=== PATIENT | male | born 1950 | race Caucasian/White ===

== ENCOUNTER 2016-09-13 13:28 | Inpatient (IN) ==
[2016-09-13] MEDS ORDERED: Nitroglycerin 0.4 MG TAB.SUBL SL PRN (13:49)
--- NOTE | 2016-09-13 13:49 | Emergency Department Note ---
Disposition Clinical Impression: Chest pain Qualifiers: Chest pain type: unspecified Qualified Code(s): R07.9 - Chest pain, unspecified Disposition: Admitted As Inpatient Condition: Good [facility]Primary Care Provider[facility] - Forms: ED Satisfaction Letter General Adult HPI - General Chief complaint: ED Chest Pain Stated complaint: Chest Pain Time Seen by Provider: 09/13/16 13:31 Source: patient Mode of arrival: ambulatory Limitations: no limitations Nursing Notes Reviewed: Yes Vital Signs Reviewed: Yes - History of Present Illness HPI Narrative: Patient transferred from the [facility] for right-sided chest pain and cardiac evaluation. Patient's symptoms are right-sided in nature and described as a heaviness that radiates to his shoulder. Patient states that it has been constant in nature. Patient is not able to attribute any alleviating or exacerbating factors. Patient was seen by his international student advisor today as an outpatient visit and transfer to the emergency department for further evaluation. Initial workup there had a negative chest x-ray and troponin with results of complete blood work dictated below. Patient's past medical history includes COPD. Degenerative disc disease. Sciatica. CHF. Alcohol abuse. Atrial fibrillation. Medications include atorvastatin, budesonide, carvedilol, cyclobenzaprine, digoxin, diltiazem, furosemide, albuterol, tiotropium. [facility] lab results and imaging: Line chest x-ray findings with no acute cardiopulmonary disease on portable chest x-ray. Troponin 0.00 WBC 11.7. Hemoglobin 16.6. Platelets 286. There is no left shift. Sodium 143, potassium 3.4, chloride 104, CO2 28, glucose 95, WN 11, creatinine 1.11, AST 28 , ALC 48, T bili 0.8, mag 2.2, BNP 519. ABG with pH of 7.43. PCO2 33.7. PO2 70. CO2 23. CN III 22.2% to 94. Lactate 0.8. Pain Scale: 0 - Related Data Allergies Allergy/AdvReac Type Severity Reaction Status Date / Time No Known Allergies Allergy Verified 09/13/16 13:29 All systems ED: reviewed and negative except as stated. Constitutional: Denies: fever, chills Eyes: Denies: eye pain Cardiovascular: Reports: chest pain, palpitations, dyspnea on exertion Respiratory: Reports: dyspnea. Denies: cough Gastrointestinal: Denies: abdominal pain, nausea Genitourinary: Denies: urgency, dysuria Musculoskeletal: Denies: back pain, neck pain Integumentary: Denies: rash Neurological: Denies: headache, weakness Psychiatric: Denies: anxiety, depression Past Medical History - Past Medical History Medical history: Reports: atrial fibrillation, CHF, COPD, hyperlipidemia Psychiatric history: Reports: no psych history - Social History Smoking Status: Former smoker Smokeless Tobacco Status: No Alcohol use: Reports: none Drug use: Reports: marijuana Physical Exam - General General appearance: alert, in no apparent distress - Head Head exam: atraumatic, normocephalic - Eye Eye exam: Present: normal appearance, PERRL - ENT ENT exam: normal exam, normal oropharynx - Neck Neck exam: Present: normal inspection - Chest Chest inspection: Present: normal inspection, symmetric chest wall rise, tenderness (Anterior chest wall) - Respiratory Respiratory exam: Present: other (Decreased breath sounds diffusely). Absent: respiratory distress - Cardiovascular Cardiovascular exam: Present: regular rate, irregular rhythm, normal heart sounds - Abdominal Exam Abdominal exam: Present: soft, Non-Tender - Extremities Exam Extremities exam: Present: normal inspection. Absent: tenderness - Neurological Exam Neurological exam: Present: alert, oriented X3. Absent: motor sensory deficit - Psychiatric Psychiatric exam: Present: normal affect, normal mood - Skin Skin exam: Present: warm, dry, intact Course Course Narrative: After evaluation of previous blood work repeated troponin, digoxin level, d- dimer and TSH will be ordered. Patient will be reevaluated and likely admitted for further workup. Patient has not had a previous cardiac workup. Patient states that he went into A. fib in 2009 but has not been on any anticoagulation since then. Patient follows at the [facility]. - Consultations Consultation #1: Discussed with Dr. Gaines. Patient accepted for admission by the hospitalist service Vital Signs Temperature 97.6 F 09/13/16 13:32 Pulse Rate 78 09/13/16 13:32 Respiratory Rate 20 09/13/16 13:32 Blood Pressure 136/87 09/13/16 13:32 O2 Sat by Pulse Oximetry 97 09/13/16 13:32 Temperature 97.6 F 09/13/16 13:32 Pulse Rate 71 09/13/16 14:52 Respiratory Rate 20 09/13/16 14:52 Blood Pressure 118/67 09/13/16 14:52 O2 Sat by Pulse Oximetry 97 09/13/16 14:52 Oxygen Delivery Oxygen Delivery Room Air Medical Decision Making - Medical Records Medical records reviewed: Yes I reviewed the patient's medical records. - Lab Data Lab results reviewed: Yes I reviewed the patient's lab results. Lab Results 09/13/16 09/13/16 09/13/16 Range/Units 14:08 14:08 14:08 D-Dimer 493 (0-500) ng/mLFEU Troponin I 0.00 (0-0.03) ng/mL TSH 3.007 (0.350-4.840) mcIU/mL Digoxin 0.8 (0.8-2.0) ng/mL - Radiology Data Radiology results reviewed: Yes I reviewed the patient's radiology results. - EKG Data EKG #1 EKG attestation: Yes I reviewed and interpreted this EKG. EKG results narrative: EKG shows atrial fibrillation. Ventricular rate of [address] elevation or depression. No specific T-wave changes. No previous EKG for comparison. Attestation Statement - Attestation Attestation: Patient was seen with resident physician. I reviewed the history, physical, assessment and plan, and agree with the findings. I also personally evaluated this patient and had [id number] time with this patient. 66-year-old male presents to the emergency department for rule out OK per [facility]. Patient was seen by international student advisor earlier today was complaining of some right-sided chest pressure that radiates to his right arm. Patient was sent then to the ER at the [facility]. Initial troponin x-ray did not reveal any acute abnormalities but he was sent here for hospitalization and rule out. Patient states that his pain is currently a 1 out of 10 he denies other symptoms at this time. On examination vital signs are stable. ENT is unremarkable. Heart and lungs are both normal. Abdomen is soft and nontender. Extremities are unremarkable. Neurologically the patient's intact. We will do another set of troponin will also check a d-dimer. Once done will admit patient to the hospital for rule out. I agree with the resident physician assessment and plan.
[2016-09-13 14:52] LABS: Digoxin 0.8 ng/mL (0.8-2.0)
[2016-09-13 14:53] LABS: Thyroid Stimulating Hormone 3.007 mcIU/mL (0.350-4.840)
[2016-09-13] MEDS ORDERED: Naloxone 0.4 MG/ML INJ IVP PRN (16:23)
[2016-09-13] MEDS ORDERED: *HR* Morphine 2 MG/ML SYRINGE IVP PRN (16:23)
[2016-09-13] MEDS ORDERED: Acetaminophen 325 MG TABLET PO PRN (16:23)
[2016-09-13] MEDS ORDERED: *HR* HYDROcodone/Acet 5/325 mg TABLET PO PRN (16:23)
[2016-09-13] MEDS ORDERED: Ondansetron 4 MG/2 ML VIAL IVP PRN (16:23)
[2016-09-13] MEDS ORDERED: Levalbuterol 1 PUFF INHALER IH PRN (16:27)
--- NOTE | 2016-09-13 16:29 | Internal Med History&Physical ---
Date of Encounter: 09/13/16 Time of Encounter: 16:29 Assessment and Plan (1) Chest pain Current visit: Yes Status: Acute Unstable angina Typical chest pain with no EKG changes or troponin elevation in a patient with multiple risk factors Continue home ASA, Lipitor, BB, Add low dose lisinopril Nitro Prn, morphine prn severe pain Supplemental O2 prn Cycle trops Obtain ECHO Cardiology eval Qualifiers: Chest pain type: unspecified Qualified Code(s): R07.9 - Chest pain, unspecified (2) Atrial fibrillation Current visit: Yes Status: Chronic HR controlled Continue home meds Qualifiers: Atrial fibrillation type: chronic Qualified Code(s): I48.2 - Chronic atrial fibrillation (3) Hypertension Current visit: Yes Status: Chronic Controlled, continue home meds Qualifiers: Hypertension type: essential hypertension Qualified Code(s): I10 - Essential (primary) hypertension (4) COPD (chronic obstructive pulmonary disease) Current visit: Yes Status: Chronic No evidence of exacerbation Continue advair, spiriva ALB prn wheezing Qualifiers: COPD type: unspecified COPD Qualified Code(s): J44.9 - Chronic obstructive pulmonary disease, unspecified (5) Hypokalemia Current visit: Yes Status: Acute Mild, replaced, repeat Chem a.m (6) CHF (congestive heart failure) Current visit: Yes Status: Chronic Chronic Type of CHF unknaonw, no records here Patient on BB, Lasix at home Continue same Add ACEI Clinically euvolemic BNP WNL Qualifiers: Congestive heart failure type: unspecified congestive heart failure type Congestive heart failure chronicity: chronic Qualified Code(s): I50.9 - Heart failure, unspecified Internal Medicine - H&P: HPI Chief complaint: chest pain Admitted From: Home Plans for Post Hospital Care: Home History of present illness: 66 M with PMH of COPD, Afib, CHF. Patients chest pain is atypical, right sided, not related to exertion or rest, and non-radiating. He had presented to his Pulmonologists office and he was referred to the ER at the [facility] due to complains of chest pain that has been going on for the past 3-4 days. Patient describes the chest pain as a feeling of being held down by someone heavier, substernal in location and has no known variability with exertion or rest. However, he reports he has been having worsening dyspnea on exertion, he reports being short of breath even with combing his hair. He denies orthopnea or PND, he denies leg swelling. Pain is intermiitent with each episode lasting about 3 minutes, pain is non-radiating. He denies dizziness or nausea or vomiting or diaphoresis during these episodes of chest pain. He used to be a smoker, currently smoked THC occasionally, denies illicit drug use. Patient reports similar symptoms 6 years ago for which he got a cath done which was said to be normal At time of review, he denies any active chest pain [facility]: Troponin 0.00, WBC 11.7. Hemoglobin 16.6. Platelets 286. There is no left shift. Sodium 143, potassium 3.4, chloride 104, CO2 28, glucose 95, WN 11, creatinine 1.11, AST 28, ALC 48, T bili 0.8, mag 2.2, BNP 519. ABG with pH of 7.43. PCO2 33.7. PO2 70. CO2 23. CN III 22.2% to 94. Lactate 0.8. CXR unremarkable EKG with Afib, moderate LAD. Repeat troponin here negative, Digoxin level is 0.8, Mag WNL. TSH WNL. Patient will be admitted for unstable angina, we will cycle troponin and obtain ECHO. However, patient with baseline EKG abnormality, Afib on digoxin and BB, will consult cardiology for eval and or LHC as interpretability of stress test will be limited. Plan of care discussed, verbalized understanding. Will replace potassium, mag is 2.2 Past Med Surg Social Fam HX - Past Medical History Medical history: atrial fibrillation, CHF, COPD, hyperlipidemia Psychiatric history: no psych history - Social History Smoking Status: Former smoker Smokeless Tobacco Status: No Alcohol use: none Drug use: marijuana - Family History Mother Living Status: Hx Family Cancer: Yes (Brain) Father Living Status: Hx Family Cancer: Yes (Lung) Internal Medicine - H&P: Meds Aspirin Enteric Coated [Aspirin EC] 81 mg PO DAILY 09/13/16 [History] Atorvastatin [Lipitor] 40 mg PO HS 09/13/16 [History] Budesonide/Formoterol 160/4.5 [Symbicort 160/4.5] 1 puff IH BIDR 09/13/16 [ History] Carvedilol 3.125 mg PO BID 09/13/16 [History] Cyclobenzaprine HCl 5 mg PO BID 09/13/16 [History] Digoxin [Lanoxin] 0.25 mg PO DAILY 09/13/16 [History] Diltiazem HCl [Diltiazem 24Hr Cd] 120 mg PO DAILY 09/13/16 [History] Furosemide [Lasix] 20 mg PO DAILY 09/13/16 [History] Levalbuterol [Xopenex INH] 2 puff IH Q6H PRN 09/13/16 [History] Tiotropium [Spiriva] 36 mcg IH DAILY 09/13/16 [History] Allergies No Known Allergies Allergy (Verified 09/13/16 13:29) All Systems PM: A 10-system review of systems was performed and is negative for pertinent findings except as documented above in the HPI. - Constitutional Constitutional: as per HPI - EENT Eyes: as per HPI Ears: as per HPI Nose, mouth and throat: as per HPI - Cardiovascular Cardiovascular ROS IM: as per HPI - Respiratory Respiratory: as per HPI - Gastrointestinal Gastrointestinal: as per HPI - Musculoskeletal Musculoskeletal ROS IM: as per HPI - Integumentary Integumentary IM: as per HPI - Neurological Neurological ROS: as per HPI - Hematologic/Lymphatic Hematologic/Lymphatic: as per HPI - Constitutional Vitals: Temp Pulse Resp BP Pulse Ox 97.6 F 67 16 115/69 96 09/13/16 16:15 09/13/16 16:15 09/13/16 16:15 09/13/16 16:15 09/13/16 16:15 General appearance: Present: A&O X 3, pleasant, no acute distress - Head Head exam: Present: atraumatic, normocephalic - Eye Eye exam: Present: PERRL, conjuntiva pink, sclera anicteric Pupils: Present: PERRL - Neck Neck exam general surgery: Present: supple, trachea midline. Absent: lymphadenopathy - Respiratory Respiratory exam: Present: CTAB. Absent: accessory muscle use, rales, rhonchi, wheezes - Cardiovascular Cardiovascular exam: Present: RRR, +S1, +S2. Absent: diastolic murmur, gallop, rubs, systolic murmur - GI/Abdominal GI/Abdominal exam: Present: normal bowel sounds, soft, no peritoneal signs. Absent: distended, tenderness - Extremities Exam Extremities exam: Present: warm, radial pulses palpable and symetrical. Absent : calf tenderness, cyanotic, pedal edema - Neurological Exam Neurological exam: Present: alert, CN II-XII intact, oriented X3, no focal deficits. Absent: pronater drift, facial droop, speech deficit - Skin Skin exam: Present: dry, intact
[2016-09-13] MEDS: Budesonide/Formoterol 160/4.5 MDI IH SCH (21:36)
[2016-09-14 04:41] LABS: Basophils # 0.1 K/mcL (0.0-0.2); Basophils % 0.7 %; Eosinophils # 0.2 K/mcL (0.0-0.6); Hematocrit 47.8 % (37.5-50.1); Hemoglobin 16.8 g/dL (12.9-16.9); Immature Granulocytes % 0.4 % (0-4); Lymphocytes # 2.8 K/mcL (0.6-4.6); Lymphocytes % 24.2 %; Mean Corpuscular HGB Conc 35.1 g/dL (31.6-35.5); Mean Corpuscular Volume 93.9 fL (83.0-100.0); Mean Platelet Volume 10.5 fL (9.4-12.4); Monocytes # 1.1 K/mcL (0.0-1.3); Monocytes % 9.4 %; Neutrophils # 7.2 K/mcL (1.6-8.9); Platelet Count 281 K/mcL (140-400); Red Blood Count 5.09 M/mcL (4.19-5.50); Red Cell Distribution Width 12.4 % (11.5-14.5); Segmented Neutrophils % 63.3 %
[2016-09-14 05:00] LABS: BUN/Creatinine Ratio 18 (6-26); Blood Urea Nitrogen 17 mg/dL (8-26); Calcium 9.8 mg/dL (8.6-10.8); Carbon Dioxide 22 mEq/L (19-29); Chloride 108 mEq/L (98-109); Glucose 98 mg/dL (70-99); Osmolality,Calculated 292 (280-300); Potassium 4.3 mEq/L (3.5-4.5); Sodium 140 mEq/L (136-145); eGFR For African Americans > 60 (> 60); eGFR For Non-African Americans > 60 (> 60)
[2016-09-14] MEDS ORDERED: *HR* Enoxaparin 30 MG/0.3 ML SYRINGE SQ SCH (06:00)
[2016-09-14] MEDS ORDERED: Furosemide 20 MG TABLET PO SCH (09:00)
[2016-09-14] MEDS ORDERED: Diltiazem CD (24hr) 120 MG CAPSULE PO SCH (09:00)
[2016-09-14] MEDS ORDERED: Tiotropium 18 MCG inhalation IH SCH (09:00)
[2016-09-14] MEDS ORDERED: Aspirin Enteric Coated 81 MG Tablet PO SCH (09:00)
[2016-09-14] MEDS ORDERED: *HR* Digoxin 0.25 MG TABLET PO SCH (09:00)
[2016-09-14] MEDS ORDERED: Regadenoson 0.4 MG/5 ML SYRINGE IVP ONE (10:45)
--- NOTE | 2016-09-14 11:47 | Cardiology Consult Note ---
Date of Encounter: 09/14/16 Time of Encounter: 11:39 Assessment and Plan (1) Chest pain Current Visit: Yes Status: Acute Typical chest pain symptoms. Troponin negative. EKG with no ST changes. May be secondary to atrial fibrillation. Multiple risk factors including previous tobacco use, hypertension, and hyperlipidemia. Stress test recommended for further ischemic evaluation.. Patient agrees. Qualifiers: Chest pain type: unspecified Qualified Code(s): R07.9 - Chest pain, unspecified (2) Atrial fibrillation Current Visit: Yes Status: Chronic Telemetry shows avg HR 89 bpm. HR 80-100 this morning after receiving medications late morning. Will continue to monitor and increase medications if needed. CHADS VASc=2 for HTN and CHF. Anticoagulation with coumadin or NOAC discussed. I discussed indications, use, and adverse effects. He is agreeable to anticoagulation. Start xarelto if echocardogram shows no significant mitral stenosis. Qualifiers: Atrial fibrillation type: chronic Qualified Code(s): I48.2 - Chronic atrial fibrillation (3) CHF (congestive heart failure) Current Visit: Yes Status: Chronic H/o CHF treated in 2009 when he was diagnosed with afib. No recurrent events. [place] records list him as systolic and diastolic CHF. Currently euvolemic. Check TTE. Qualifiers: Congestive heart failure type: unspecified congestive heart failure type Congestive heart failure chronicity: chronic Qualified Code(s): I50.9 - Heart failure, unspecified Discussion w patient/family: The assessment and plan as outlined above was discussed with the patient and/or family members who expressed understanding and agreement. All questions were answered. Thank you for involving us in the care of your patient. Please call with any questions. History of Present Illness Consult date: 09/14/16 Requesting physician: Ty Gaines Consult reason: Chest pain Chief complaint: Chest pain History of present illness: Mr. Aguirre is a 66 year old male with a history of atrial fibrillation, hypertension, previous tobacco use, and CHF who presented from the [facility] with chest pain. He c/o a mid-sternal non-radiating chest pressure over the last three days. The pain increases with activity and improved with rest. He states his "heart was acting up" while he was being evaluated at the [facility] emergency department. Initial EKG showed atrial fibrillation. HR 96bpm. No acute ST changes. Telemetry review shows avg HR 89 bpm. He appears to have rate controlled afib since admission. He is currently pain free. Denies h/o CAD. Reports diagnosis of afib in 2009. He underwent LHC at that time that was okay per patient. Past Med Surg Social Fam HX - Past Medical History Attestation: Yes The following information was validated with the patient. Medical history: atrial fibrillation, CHF, COPD, hyperlipidemia Psychiatric history: no psych history - Social History Smoking Status: Former smoker Smokeless Tobacco Status: No Alcohol use: none Drug use: marijuana - Family History Mother Living Status: Hx Family Cancer: Yes (Brain) Father Living Status: Hx Family Cancer: Yes (Lung) Medications and Allergies Aspirin Enteric Coated [Aspirin EC] 81 mg PO DAILY 09/13/16 [History] Atorvastatin [Lipitor] 40 mg PO HS 09/13/16 [History] Budesonide/Formoterol 160/4.5 [Symbicort 160/4.5] 1 puff IH BIDR 09/13/16 [ History] Carvedilol 3.125 mg PO BID 09/13/16 [History] Cyclobenzaprine HCl 5 mg PO BID 09/13/16 [History] Digoxin [Lanoxin] 0.25 mg PO DAILY 09/13/16 [History] Diltiazem HCl [Diltiazem 24Hr Cd] 120 mg PO DAILY 09/13/16 [History] Furosemide [Lasix] 20 mg PO DAILY 09/13/16 [History] Levalbuterol [Xopenex INH] 2 puff IH Q6H PRN 09/13/16 [History] Tiotropium [Spiriva] 36 mcg IH DAILY 09/13/16 [History] Allergies No Known Allergies Allergy (Verified 09/13/16 13:29) All Systems Review: A 10-system review of systems was performed and is negative for pertinent findings except as documented above in the HPI. Physical Examination Vital Signs, Last 4 Hours Temp Pulse Resp BP Pulse Ox 09/14/16 11:18 97.7 F 100 16 119/76 95 09/14/16 08:46 96 General: Conversant, No Apparent Distress HEENT: Atraumatic, Normocephaly, Mucus Membranes Moist Neck: No JVD, Normal carotid pulses Cardiac: Other (irregularly irregular. ) Lungs: Normal Breath Sounds, No Wheeze, Rales, Rhonchi Neuro: Alert and responsive, No focal deficits noted Abdomen: Soft, Non-Tender Skin: No rashes noted on visualized skin Musculoskeletal: No Chest Wall Tenderness Extremities: No Clubbing, No Cyanosis, No Edema, Normal Pulses Results 09/14/16 03:10 09/14/16 03:10 Lab Results 09/13/16 09/14/16 09/14/16 19:54 03:10 03:10 WBC 11.4 H Hgb 16.8 Hct 47.8 Plt Count 281 Sodium 140 Potassium 4.3 Chloride 108 Carbon Dioxide 22 BUN 17 Creatinine 0.94 Glucose 98 Calcium 9.8 Magnesium Troponin I 0.00 09/14/16 03:10 WBC Hgb Hct Plt Count Sodium Potassium Chloride Carbon Dioxide BUN Creatinine Glucose Calcium Magnesium 1.9 Troponin I - Imaging and Cardiology Stress Test: pending Echo: pending - EKG Interpretation EKG results cardiology: personally reviewed Consult Discharge Plan - Plan [facility]errals: [facility] [Primary Care Provider] -
--- NOTE | 2016-09-14 11:48 | ECHO - Doppler Report ---
Echocardiogram Name: Willam Aguirre Date of Study: 09/14/2016 Date: 1950 Ht: 68.0 in Medical Record#: [id number] Age: 66 Wt: 153.0 lb Gender: Male BSA: 1.82 Order #: [id number] Location: [facility] Room #: 3B Reading Physician: Kevin Ding DO, [facility] [place] Clinical Leader: aMrko Schultz RN Ordering Physician: Ty Gaines MD Primary Physician: [facility] Indications: Chest pain Impressions: LVEF 55-60%. Normal LV chamber size and function. Mild concentric left ventricular hypertrophy. Atypical septal motion consistent with bundle branch block. Indeterminate diastolic function. Normal right ventricular structure and function. Moderately dilated left atrium. Mild tricuspid regurgitation. No pulmonary hypertension. Left Ventricular Wall Motion: Rest Echo Findings All wall segments showed normal motion. Findings: Study Quality * Technically adequate exam. ECG Findings * Atrial fibrillation with a bundle branch block. Left Ventricle * LVEF 55-60%. * Normal LV chamber size and function. * Mild concentric left ventricular hypertrophy. * Atypical septal motion consistent with bundle branch block. * Indeterminate diastolic function. Right Ventricle * Normal right ventricular structure and function. Left Atrium * Moderately dilated left atrium. Right Atrium * Mildly dilated right atrium. Interatrial Septum * No evidence of PFO by color Doppler. Aortic Valve * Trileaflet aortic valve with normal function. * No aortic regurgitation. * No aortic stenosis. Mitral Valve * Normal mitral valve structure and function. * No mitral stenosis. * Trace mitral regurgitation. Tricuspid Valve * Normal tricuspid valve structure. * Mild tricuspid regurgitation. * No pulmonary hypertension. Pulmonic Valve * Normal pulmonic valve structure and function. * No pulmonic regurgitation. Aorta * Normally sized aortic root. Pericardium * The pericardium appears normal. IVC * Normal IVC dimensions and inspiratory collapse. Pulmonary Artery * Normal visualized portions of the main pulmonary artery. History Hypertension Hypercholesteremia Years 40 Packs 2 Congestive Heart Failure Measurements: BP: 126/ 86 2D Normal Values RVIDd: 2.50 cm <2.7 cm IVSd: 1.20 cm 0.6 - 1.0 cm LVIDd: 4.10 cm 3.7 - 5.6 cm LVPWd: 1.20 cm 0.6 - 1.1 cm LVIDs: 2.50 cm 1.5 - 3.6 cm LA: 3.40 cm 2.0 - 4.0cm %FS: 39.00 cm >25 % LVOT Diam: 2.00 cm LA volume: 87 Mitral Valve Peak E:.67 m/sec Peak A:.51 m/sec E/A Ratio:1.3 Peak E' Lat Anjel:11.3 cm/s Peak E' Med Anjel:8.97 cm/s E/E' Lat Ratio:5.9 E/E' Med Ratio:7.5 Tricuspid Valve TV Regurg Peak Grad: 23.00mmHg TV Regurg Peak Anjel: 2.40m/sec Updated by Kevin Ding DO, FACTre, FALGUNI, SONYA on 09/14/2016 11:44:12 AM electronically signed on 09/14/2016 11:44:48 AM with status of Final [employer] [place]: 1=Normal, 2=Hypokinesis, 3=Akinesis, 4=Dyskinesis, 5=Aneurysmal, 6=Hyperkinetic, X=Not Visualized (Blank)=Missing
[2016-09-14] MEDS: Budesonide/Formoterol 160/4.5 MDI IH SCH (12:00)
--- NOTE | 2016-09-14 14:05 | Nuclear Medicine Stress Report ---
Regadenoson Nuclear Stress Name: Willam Aguirre Date of Study: 09/14/2016 Date: 1950 Ht: 68.0 in Medical Record#: [id number] Age: 66 Wt: 157.0 lb Gender: Male Order #: [id number] [facility] Room: [facility] Supervising Provider: Jolie Licona CNP Reading Physician: Kevin Ding DO, FACC, FASSC Ordering Physician: Madonna Moreira MD Primary Care Physician: [facility] Stress Technologist: Fabienne Johnson CYTOLOGY LABORATORY MANAGER, CCT On Air Host: Junior Chirstine Indications: Chest Pain Impression: Pharmacologic stress ECG is non diagnostic for ischemia due to baseline non-specific ST and T changes. Gated EF > 70%. Perfusion imaging was negative for ischemia or infarct. History: Hypertension Hypercholesteremia Stress Test Summary: Stress Test Type: Pharmacologic Regadenoson 0.4mg/5ml given IV Baseline Information: Initial Heart Rate: 105 Blood Pressure: 112/64 Stress Information: Test Terminated Due to (primary): As per protocol Maximum Blood Pressure: 98/70 Maximum Heart Rate: 119 Percent Maximum Heart Rate Achieved: 76 Double Product: [id number] METS Reached: 1 Symptoms: No chest symptoms Nuclear Summary: SPECT myocardial perfusion imaging using Tc99m Sestamibi given intravenously was performed at rest and following cardiac stress testing. The resting images were obtained following initial dose of 10.1 mCi. Following stress an additional dose of 35.3 mCi was given at peak exercise or 30 seconds post regadenoson infusion. Medication Given: Time Medication Dose Units Route Findings: Stress Note * Atrial fibrillation with nonpsecific ST-T changes throughout the study. * Pharmacologic stress ECG is non diagnostic for ischemia due to baseline non-specific ST and T changes. * Patient had no chest pain during stress. Hemodynamic responses * Normal hemodynamic responses to pharmacologic stress. Study Quality * Study quality is average. Gated EF > 70% * Gated EF > 70%. Left Ventricle * The left ventricle is not dilated. * LVEDV = 59 mL. NORMALS * Normal wall motion. * Normal segmental perfusion in stress. Inferior Perfusion Rest * The inferoseptal segments show a mild reduction in perfusion, which improved with stress imaging. This is consistent with artifact. TID * No evidence of transient ischemic dilatation. TID ratio * TID ratio = 0.97. Lung Uptake * There is no evidence of increase lung uptake. Updated by Kevin Ding DO, MARIN, FALGUNI, SONYA on 09/14/2016 1:58:33 PM electronically signed on 09/14/2016 1:59:28 PM with status of Final
[2016-09-14 15:37] VITALS: BP 109/79
[2016-09-14] MEDS ORDERED: *HR* Rivaroxaban 10 MG TABLET PO SCH (17:00)
--- NOTE | 2016-09-14 17:12 | Discharge Summary ---
Date of Encounter: 09/14/16 Time of Encounter: 17:09 - Discharge Diagnosis (1) Chest pain Priority: Primary Status: Acute Qualifiers: Chest pain type: unspecified Qualified Code(s): R07.9 - Chest pain, unspecified (2) Atrial fibrillation Priority: Secondary Status: Chronic Qualifiers: Atrial fibrillation type: chronic Qualified Code(s): I48.2 - Chronic atrial fibrillation (3) Hypertension Priority: Secondary Status: Chronic Qualifiers: Hypertension type: essential hypertension Qualified Code(s): I10 - Essential (primary) hypertension (4) COPD (chronic obstructive pulmonary disease) Priority: Secondary Status: Chronic Qualifiers: COPD type: unspecified COPD Qualified Code(s): J44.9 - Chronic obstructive pulmonary disease, unspecified - Discharge Medications Prescriptions: Carvedilol [Coreg] 6.25 mg PO BID #60 tablet Rivaroxaban [Xarelto] 20 mg PO DAILY #30 tablet Home Medications: Aspirin Enteric Coated [Aspirin EC] 81 mg PO DAILY 09/13/16 [History] Atorvastatin [Lipitor] 40 mg PO HS 09/13/16 [History] Budesonide/Formoterol 160/4.5 [Symbicort 160/4.5] 1 puff IH BIDR 09/13/16 [ History] Cyclobenzaprine HCl 5 mg PO BID 09/13/16 [History] Digoxin [Lanoxin] 0.25 mg PO DAILY 09/13/16 [History] Diltiazem HCl [Diltiazem 24Hr Cd] 120 mg PO DAILY 09/13/16 [History] Furosemide [Lasix] 20 mg PO DAILY 09/13/16 [History] Levalbuterol [Xopenex INH] 2 puff IH Q6H PRN 09/13/16 [History] Tiotropium [Spiriva] 36 mcg IH DAILY 09/13/16 [History] Carvedilol [Coreg] 6.25 mg PO BID #60 tablet 09/14/16 [Rx] Rivaroxaban [Xarelto] 20 mg PO DAILY #30 tablet 09/14/16 [Rx] Allergies/Adverse Reactions: Allergies No Known Allergies Allergy (Verified 09/13/16 13:29) Procedures/tests Complete & Pending: Procedures Performed prior 72 hours Category Date Time Status NM daniella perf SPECT multi [NM] Routine Exams 09/14/16 09:27 Taken EV echocardiogram Routine Y 09/14/16 16:26 Completed SP pharm nuclear stress Routine Y 09/14/16 10:30 Completed Date of admission: 09/13/16 16:23 Primary care physician: PCP [place] Consults: 09/13/16 17:17 Consult to Cardiology [CONS] Routine Comment: Consulting Provider: Cardiology Tila Reason for Consult: Known Afib on digoxin with angina, admitted for chest pain/LANCE, unable to stress due to abnormal baseline EKG and use of digoxin, please evaluate for cardiac cath. ECHO has been ordered, trop negative X2 Call Completed: No 09/14/16 13:30 Consult to Poultry Picker [CONS] Routine Reason for SW Consult: from [place], may need transportation 09/14/16 14:04 Consult to Respiratory Therapy [CONS] Routine Reason for Consult: COPD medications Call Completed: Yes - Patient Status Disposition: Home, Self-Care Condition: Good Functional capacity at discharge: independent ambulation Overall status at discharge: patient is progressing back to baseline - Discharge Instructions Instructions: Heart Failure (DC), Atrial Fibrillation (DC), Chest Pain (DC), Chronic Obstructive Pulmonary Disease (DC), Chronic Hypertension (DC) [facility] Care Provider[facility] - 09/22/16 2:00 pm Additional Instructions: FOLLOW UP IN THE CARDIOLOGY CLINIC IN 2 WEEKS - Diet and Activity Activity: resume usual activities as tolerated Diet: low fat, low cholesterol Interval History: patient has no chest pain. he is ambulating well. he is eager to go home. Hospital course: Mr. Aguirre is a 66 year old male with past medical history of atrial fibrillation , hypertension, COPD and previous tobacco use who presented from the [place] with chest pain. EKG showed no acute ischemic changes. troponin negative. PAtient underwent nuclear stress test that was negative for ischemia. He was started on Xarelto due to CHADS-vasc score of 2. PLAN: follow up with PCP next week. - Time Spent with Patient Total time spent providing and/or coordinating discharge services: - Constitutional Vitals: Temp Pulse Resp BP Pulse Ox 98.2 F 89 15 109/79 96 09/14/16 15:36 09/14/16 15:36 09/14/16 15:36 09/14/16 15:36 09/14/16 15:36 General appearance: Present: A&O X 3, pleasant, no acute distress - Eye Eye exam: Present: PERRL, sclera anicteric - Neck Neck exam general surgery: Present: supple, trachea midline. Absent: lymphadenopathy - Respiratory Respiratory exam: Present: CTAB - Cardiovascular Cardiovascular exam: Present: RRR - GI/Abdominal GI/Abdominal exam: Present: normal bowel sounds, soft. Absent: distended, tenderness - Extremities Exam Extremities exam: Absent: pedal edema - Back Exam Back exam: Absent: CVA tenderness (L), CVA tenderness (R) - Neurological Exam Neurological exam: Present: alert, oriented X3, no focal deficits, strengths equal and symetr throughout. Absent: facial droop, speech deficit - Skin Skin exam: Absent: rash
--- NOTE | 2016-09-19 16:55 | Electrocardiograph Report ---
[facility] Test Date: 2016-09-13 Pat Name: Willam Aguirre Department: 102 Room: 3B38 Gender: M Levelman: : 1950 Requested By: Miguel Gonzalez Order Number: [id number] Reading MD: Darren Rodriguez MD Measurements Intervals Egan Rate: 78 P: [place]: 0 QRS: -33 QRSD: 115 T: 72 QT: 357 QTc: 391 Interpretive Statements ATRIAL FIBRILLATION MARKED LEFT AXIS DEVIATION Electronically Signed On 09-19-2016 16:53:27 EDT by Darren Rodriguez MD
== END 2016-09-14 18:00 | disposition home or self-care (01) | DRG 313 ==
LOC: EMEROO 13:28 → 3BNU 13:28 → SUATTDRO 16:23
PROVIDERS: ADMIT Internal Medicine; ATTEND Internal Medicine